=== PATIENT | female | born 1990 | race Caucasian/White ===

== ENCOUNTER → 2017-12-23 12:00 | Outpatient (CLI) | payer OTHER, SELFPAY ==
[2017-12-23 13:35] LABS: Follicle Stimulating Hormone 5.7 mIU/mL; T4 Free Direct 1.08 ng/dL (0.76-1.46)
[2017-12-25 14:06] LABS: DHEA Sulfate 492.6 ug/dL (84.8-378.0)
[2017-12-26 11:08] LABS: Testosterone Free 1.1 pg/mL (0.0-4.2)
== END ==
PROVIDERS: Visit Provider Obstetrics & Gynecology
DX: N92.6 Irregular menstruation, unspecified (principal)
CPT/HCPCS: 36415; 82627; 83001; 84402; 84439; 82626

== ENCOUNTER → 2017-12-29 11:56 | Outpatient (CLI) | payer OTHER, SELFPAY | PROVIDERS: Visit Provider Obstetrics & Gynecology | DX: N92.6 Irregular menstruation, unspecified (principal); N83.02 Follicular cyst of left ovary; N83.01 Follicular cyst of right ovary | CPT/HCPCS: 76830; 76856; 93976 ==

== ENCOUNTER → 2018-01-20 15:49 | Outpatient (CLI) | payer OTHER, SELFPAY ==
[2018-01-20 17:48] LABS: Progesterone Level 11.58 ng/mL (See Comment)
[2018-01-20 18:10] LABS: hCG Titer Quant., Serum 1040 mIU/mL (<9 non-preg)
== END ==
PROVIDERS: Visit Provider Obstetrics & Gynecology
DX: N97.9 Female infertility, unspecified (principal); N92.6 Irregular menstruation, unspecified
CPT/HCPCS: 36415; 84144; 84702

== ENCOUNTER → 2018-01-22 10:55 | Outpatient (CLI) | payer OTHER, SELFPAY ==
[2018-01-22 12:37] LABS: hCG Titer Quant., Serum 2347 mIU/mL (<9 non-preg)
== END ==
PROVIDERS: Visit Provider Obstetrics & Gynecology
DX: N92.6 Irregular menstruation, unspecified (principal)
CPT/HCPCS: 36415; 84702

== ENCOUNTER → 2018-02-21 20:11 | Outpatient (CLI) | payer OTHER, SELFPAY ==
[2018-02-21 23:18] LABS: Chlamydia Trachomatis by PCR Negative (Negative); Neisserai gonorrhoeae by PCR Negative (Negative); Probe Check PASS; Sample Adequacy Control PASS; Specimen Processing Control PASS
[2018-02-24 12:05] LABS: HPV Reflexed? NOT INDICATED
== END ==
PROVIDERS: Referring Provider Obstetrics & Gynecology; Visit Provider Obstetrics & Gynecology
DX: Z34.80 Encounter for supervision of other normal pregnancy, unspecified trimester (principal); Z12.4 Encounter for screening for malignant neoplasm of cervix
CPT/HCPCS: 87086; 87491; 87591; 87624; 88175; G0145

== ENCOUNTER → 2018-03-23 12:34 | Outpatient (CLI) | payer OTHER, SELFPAY ==
[2018-03-23 11:52] VITALS: BMI 34.5
[2018-03-23 14:03] LABS: Absolute Lymphocyte Count 1.72 X10^3/ul (0.83-4.51); Absolute Neutrophil Count 9.1 X10^3/uL (2.0-7.7); Basophil# 0.02 X10^3/uL; Basophil% 0.2 % (0-1); Eosinophil# 0.09 X10^3/uL; Eosinophils% 0.8 % (0-5); Hematocrit 39.4 % (37-47); Hemoglobin 13.2 g/dl (12.0-15.0); Lymphocyte # 1.72 X10^3/ul (4.0); Lymphocyte % 15.1 % (19-41); Mean Corp Hgb Conc 33.5 g/gl (32-36); Mean Corpuscular Hgb 30.9 pg (27.0-32.0); Mean Corpuscular Volume 92.3 fL (81-99); Mean Platelet Vol. 11.4 fl (6.2-12.0); Monocyte# 0.38 X10^3/uL; Monocyte% 3.3 % (0-10); Neutrophil # 9.13 X10^3/uL (2.7-7.7); Neutrophil % 80.3 % (47-70); Platelet Count 310 K/mm3 (150-450); RBC Distribution Width CV 13.7 % (11.6-14.6); RBC Distribution Width SD 45.3 fl (35.1-43.9); Red Blood Count 4.27 M/mm3 (4.2-5.4); White Blood Count 11.4 K/mm3 (4.4-11.0)
[2018-03-23 14:12] LABS: POSITIVE COUNT NO; POSITIVE DIFFERENTIAL NO; POSITIVE MORPHOLOGY NO
[2018-03-23 14:45] LABS: HIV - WCH Non-Reactive (Nonreactive); Rubella IgG 34.2 IU/mL
[2018-03-24 08:30] LABS: HEPATITIS B SURFACE AG Negative (Negative)
[2018-03-25 02:03] LABS: Rapid Plasmin Reagin (RPR) NONREACTIVE (NONREACTIVE)
== END ==
PROVIDERS: Referring Provider Obstetrics & Gynecology; Visit Provider Obstetrics & Gynecology
DX: Z34.82 Encounter for supervision of other normal pregnancy, second trimester (principal)
CPT/HCPCS: 36415; 85025; 86592; 86703; 86762; 86850; 86900; 87340

== ENCOUNTER 2018-07-07 14:15 | Outpatient (CLI) | payer OTHER, SELFPAY ==
[2018-07-07 14:05] VITALS: BMI 36.3
[2018-07-07 14:25] VITALS: BMI 36.7
[2018-07-07 15:00] LABS: Protein, Urine (Random) < 6.0 mg/dL (<11.9)
[2018-07-07 15:15] LABS: Hematocrit 33.8 % (37-47); Mean Corp Hgb Conc 32.5 g/gl (32-36); Mean Corpuscular Hgb 31.1 pg (27.0-32.0); Mean Corpuscular Volume 95.5 fL (81-99); Mean Platelet Vol. 10.9 fl (6.2-12.0); Platelet Count 251 K/mm3 (150-450); RBC Distribution Width CV 13.8 % (11.6-14.6); RBC Distribution Width SD 45.7 fl (35.1-43.9); Red Blood Count 3.54 M/mm3 (4.2-5.4); Scan Indicated on CBC? Y/N NO; White Blood Count 12.7 K/mm3 (4.4-11.0)
[2018-07-07 15:28] LABS: International Normalized Ratio 1.1; Prothrombin Time (Protime)PT. 13.5 SECONDS (11.7-14.9)
[2018-07-07 15:29] LABS: Partial Thromboplast Time 26.4 Seconds (24.1-36.2)
[2018-07-07 15:32] LABS: Glucose Challenge Gest 1H 50g 148 mg/dL (70-140)
[2018-07-07 15:36] LABS: AST(SGOT) 13 U/L (15-37); Alanine Aminotransfer ALT/SGPT 15 U/L (13-56); Creatinine, Serum 0.57 mg/dL (0.55-1.02); EST Glomerular Filtration Rate 133 mL/min (>60); Est Glom Filt Rate - Afr Amer 161 mL/min (>60); Estimated Creatinine Clearance 148.23 ml/min; Uric Acid 2.4 mg/dL (2.6-6.0)
--- NOTE | 2018-07-08 03:17 | OB.TRI.NOTE ---
- Problem List (1) screening encounter Status: Acute Comment: NIPT low risk. (2) Status: Acute Qualifiers: Comment: nl NIPT. carrier and ntd screening declined. Normal Anatomy scan (3) History of delivery, currently Status: Acute Comment: previous plan RLTCS (4) Supervision of normal Status: Acute Qualifiers: Comment: PRR SHANE 09/24/18 Boy. PC Shekhar Олег (5) Elevated BP without diagnosis of hypertension Status: Acute History of Present Illness Date of Service: 07/07/18 Was patient seen by the physician?: Yes Reason For Visit: R/O PREECLAMPSIA History of Present Illness: elevated bps in office Allergies aspirin Allergy (Verified 07/07/18 13:47) Swelling latex Allergy (Verified 07/07/18 13:47) Rash - Pertinent Past Medical History Surgical History: Past Surgical History (Last Reviewed 07/07/18 @ 13:48 by Gabriela Zheng) delivery delivered H/O hand surgery History of appendectomy [place] teeth extracted Laboratory Studies: Laboratory Tests 07/07/18 07/07/18 07/07/18 Range/Units 14:50 14:50 14:50 WBC (4.4-11.0) K/mm3 RBC (4.2-5.4) M/mm3 Hgb (12.0-15.0) g/dl Hct (37-47) % MCV (81-99) fL MCH (27.0-32.0) pg MCHC (32-36) g/gl RDW (11.6-14.6) % RDW Differential (35.1-43.9) fl Plt Count (150-450) K/mm3 MPV (6.2-12.0) fl PT 13.5 (11.7-14.9) SECONDS INR 1.1 APTT 26.4 (24.1-36.2) Seconds Creatinine 0.57 (0.55-1.02) mg/dL Estim Creat Clear Calc 148.23 ml/min Est GFR (MDRD) Af Amer 161 (>60) mL/min Est GFR (MDRD) Non-Af 133 (>60) mL/min Glucose 1 Hr 50 gm 148 H (70-140) mg/dL Uric Acid 2.4 L (2.6-6.0) mg/dL AST 13 L (15-37) U/L ALT 15 (13-56) U/L U Random Total Protein (<11.9) mg/dL Urine Creatinine (NO RANGE EST.) mg/dL Protein/Creatinin Ratio 07/07/18 07/07/18 Range/Units 14:50 14:30 WBC 12.7 H (4.4-11.0) K/mm3 RBC 3.54 L (4.2-5.4) M/mm3 Hgb 11.0 L (12.0-15.0) g/dl Hct 33.8 L (37-47) % MCV 95.5 (81-99) fL MCH 31.1 (27.0-32.0) pg MCHC 32.5 (32-36) g/gl RDW 13.8 (11.6-14.6) % RDW Differential 45.7 H (35.1-43.9) fl Plt Count 251 (150-450) K/mm3 MPV 10.9 (6.2-12.0) fl PT (11.7-14.9) SECONDS INR APTT (24.1-36.2) Seconds Creatinine (0.55-1.02) mg/dL Estim Creat Clear Calc ml/min Est GFR (MDRD) Af Amer (>60) mL/min Est GFR (MDRD) Non-Af (>60) mL/min Glucose 1 Hr 50 gm (70-140) mg/dL Uric Acid (2.6-6.0) mg/dL AST (15-37) U/L ALT (13-56) U/L U Random Total Protein < 6.0 (<11.9) mg/dL Urine Creatinine 21.90 (NO RANGE EST.) mg/dL Protein/Creatinin Ratio TNP NST - FHR Rate Baby A Baseline: 130 Variability:: Moderate Accelerations:: 15 x 15 Decelerations:: None NST Reactive:: Yes FHR Category:: Category I Uterine Activity:: no regular Impression/Plan elevated bp in office but repeats WNL, normal labs and asymptomatic. recommend dc preeclampsia precautions and fu in office in 1 week
== END 2018-07-07 16:05 | disposition home or self-care (01) ==
LOC: WPOUT 14:23 → WP 14:24
PROVIDERS: Referring Provider Obstetrics & Gynecology; Visit Provider Obstetrics & Gynecology
DX: O99.89 Other specified diseases and conditions complicating pregnancy, childbirth and the puerperium (principal); R03.0 Elevated blood-pressure reading, without diagnosis of hypertension; Z3A.00 Weeks of gestation of pregnancy not specified
CPT/HCPCS: 36415; 59025; 59050; 82565; 82570; 82950; 84156; 84450; 84460; 84550; 85027; 85610; 85730; 99218; G0378

== ENCOUNTER → 2018-07-12 07:41 | Outpatient (CLI) | payer OTHER, SELFPAY ==
[2018-07-07 14:25] VITALS: BMI 36.7
[2018-07-12 09:08] LABS: Glucose GTT-Gestation. Fasting 85 mg/dL (<105)
[2018-07-12 09:52] LABS: Glucose GTT-Gestational 1 Hr 174 mg/dL (<190)
[2018-07-12 12:17] LABS: Glucose GTT-Gestational 2 Hr 147 mg/dL (<165)
[2018-07-12 12:25] LABS: Glucose GTT-Gestational 3 Hr 87 L (<145)
== END ==
PROVIDERS: Referring Provider Obstetrics & Gynecology; Visit Provider Obstetrics & Gynecology
DX: O99.810 Abnormal glucose complicating pregnancy (principal); Z3A.00 Weeks of gestation of pregnancy not specified
CPT/HCPCS: 36415; 82951; 82952

== ENCOUNTER 2018-08-15 10:40 | Outpatient (CLI) | payer OTHER, SELFPAY ==
[2018-08-02 16:38] VITALS: BMI 36.7
[2018-08-15 11:02] VITALS: BMI 37.3
[2018-08-15] MEDS: Lactated Ringers 1,000 ML 999 ML IV (13:33)
[2018-08-15 13:41] LABS: Absolute Lymphocyte Count 1.76 X10^3/ul (0.83-4.51); Absolute Neutrophil Count 11.6 X10^3/uL (2.0-7.7); Basophil# 0.02 X10^3/uL; Basophil% 0.1 % (0-1); Eosinophil# 0.06 X10^3/uL; Eosinophils% 0.4 % (0-5); Hematocrit 36.1 % (37-47); Hemoglobin 11.7 g/dl (12.0-15.0); Lymphocyte # 1.76 X10^3/ul (4.0); Lymphocyte % 12.5 % (19-41); Mean Corp Hgb Conc 32.4 g/gl (32-36); Mean Corpuscular Hgb 30.6 pg (27.0-32.0); Mean Corpuscular Volume 94.5 fL (81-99); Mean Platelet Vol. 10.9 fl (6.2-12.0); Monocyte# 0.52 X10^3/uL; Monocyte% 3.7 % (0-10); Neutrophil # 11.59 X10^3/uL (2.7-7.7); Neutrophil % 82.7 % (47-70); POSITIVE COUNT NO; POSITIVE DIFFERENTIAL NO; POSITIVE MORPHOLOGY NO; Platelet Count 210 K/mm3 (150-450); RBC Distribution Width CV 14.7 % (11.6-14.6); RBC Distribution Width SD 50.1 fl (35.1-43.9); Red Blood Count 3.82 M/mm3 (4.2-5.4)
[2018-08-15 14:32] LABS: Bacteria 0 SEEN /hpf (None Seen); Mucous, Urine 0 SEEN /hpf (<or=2+); Red Blood Cells-Urine 0 SEEN /hpf (0-5); White Blood Cells 0 SEEN /hpf (0-5)
[2018-08-15 14:34] LABS: Color, Urine Yellow (Yellow); Glucose, Dipstick Normal (Normal); Ketone-Dipstick Negative (Negative); Leukocyte Esterase-Dipstick Negative /ul (Negative); Nitrite-Dipstick Negative (Negative); Occult Blood-Urine Negative /ul (Negative); Protein-Dipstick Negative (Negative); Specific Gravity, Urine 1.005 (1.002-1.030); Urine Bilirubin Dipstick Negative (Negative); Urine Clarity Clear (Clear); Urine Urobilinogen Normal (Normal)
[2018-08-15 14:44] LABS: Squamous Epithelial Cells - UA 0-5 SEEN /hpf (5-10)
--- NOTE | 2018-08-24 03:40 | OB.TRI.PN_ITS ---
Progress Notes Date of Service: 08/15/18 Progress Note: NST secondary to abdominal trauma from status post fall heart tones 130s moderate variability reactive no decelerations category 1 tracing reactive and reassuring [place]: Irregular contractions Assessment and plan: Abdominal trauma secondary to fall reassuring reactive NST no decelerations DC home labor precautions and kick counts Laboratory Studies: Laboratory Tests 08/15/18 08/15/18 Range/Units 14:20 13:30 WBC 14.0 H (4.4-11.0) K/mm3 RBC 3.82 L (4.2-5.4) M/mm3 Hgb 11.7 L (12.0-15.0) g/dl Hct 36.1 L (37-47) % MCV 94.5 (81-99) fL MCH 30.6 (27.0-32.0) pg MCHC 32.4 (32-36) g/gl RDW 14.7 H (11.6-14.6) % RDW Differential 50.1 H (35.1-43.9) fl Plt Count 210 (150-450) K/mm3 MPV 10.9 (6.2-12.0) fl Immature Gran % (Auto) 0.600 (0.0-0.9) % Neut % (Auto) 82.7 H (47-70) % Lymph % (Auto) 12.5 L (19-41) % Fisher % (Auto) 3.7 (0-10) % Eos % (Auto) 0.4 (0-5) % Baso % (Auto) 0.1 (0-1) % Absolute Neuts (auto) 11.6 H (2.0-7.7) X10^3/uL Absolute Lymphs (auto) 1.76 (0.83-4.51) X10^3/ul Total Counted Not Reportable Urine Color Yellow (Yellow) Urine Clarity Clear (Clear) Urine pH 7.0 (5.0 - 8.0) Ur Specific [place] 1.005 (1.002-1.030) Urine Protein Negative (Negative) mg/dl Urine Glucose (UA) Normal (Normal) mg/dl Urine Ketones Negative (Negative) mg/dl Urine Occult Blood Negative (Negative) /ul Urine Nitrite Negative (Negative) Urine Bilirubin Negative (Negative) mg/dL Urine Urobilinogen Normal (Normal) mg/dl Ur Leukocyte Esterase Negative (Negative) /ul Urine RBC 0 SEEN (0-5) /hpf Urine WBC 0 SEEN (0-5) /hpf Ur Squamous Epith Cells 0-5 SEEN (5-10) /hpf Urine Bacteria 0 SEEN (None Seen) /hpf Urine Mucus 0 SEEN (<or=2+) /hpf
== END 2018-08-15 14:43 | disposition home or self-care (01) ==
LOC: WPOUT 10:44 → OBT 10:45
PROVIDERS: Referring Provider Obstetrics & Gynecology; Visit Provider Obstetrics & Gynecology
DX: O9A.219 Injury, poisoning and certain other consequences of external causes complicating pregnancy, unspecified trimester (principal); S39.91XA Unspecified injury of abdomen, initial encounter; W19.XXXA Unspecified fall, initial encounter; Y93.9 Activity, unspecified; Y92.9 Unspecified place or not applicable; Z3A.00 Weeks of gestation of pregnancy not specified
CPT/HCPCS: 59025; 59050; 81001; 85025; 87086; 87088; 99218; J7120; G0378

== ENCOUNTER → 2018-08-29 16:35 | Outpatient (CLI) | payer OTHER, SELFPAY ==
[2018-08-29 15:18] VITALS: BMI 37.3
== END ==
PROVIDERS: Referring Provider Nurse Practitioner Women's Health; Visit Provider Nurse Practitioner Women's Health
DX: Z34.90 Encounter for supervision of normal pregnancy, unspecified, unspecified trimester (principal)
CPT/HCPCS: 87081

== ENCOUNTER 2018-09-20 05:25 | Inpatient (IN) | payer OTHER, SELFPAY ==
[2018-07-19 16:09] VITALS: BMI 36.7
[2018-08-15 13:00] VITALS: BMI 37.3
[2018-09-13 16:02] VITALS: BMI 37.3
[2018-09-20] VITALS (20 sets, daily range): BP systolic 83–147; BP diastolic 37–98; PULSE 64–93; RESP 16–18; TEMP 35.7–36.8; O2SAT 94–100; BMI 38.5
[2018-09-20] MEDS: Lactated Ringers 1,000 ML 999 ML IV (05:55)
[2018-09-20 06:25] LABS: Absolute Neutrophil Count 8.4 X10^3/uL (2.0-7.7); Basophil# 0.01 X10^3/uL; Basophil% 0.1 % (0-1); Eosinophil# 0.11 X10^3/uL; Hematocrit 35.6 % (37-47); Hemoglobin 11.9 g/dl (12.0-15.0); Lymphocyte % 17.6 % (19-41); Mean Corp Hgb Conc 33.4 g/gl (32-36); Mean Corpuscular Hgb 31.2 pg (27.0-32.0); Mean Corpuscular Volume 93.4 fL (81-99); Mean Platelet Vol. 11.4 fl (6.2-12.0); Monocyte# 0.73 X10^3/uL; Monocyte% 6.4 % (0-10); Neutrophil # 8.42 X10^3/uL (2.7-7.7); Neutrophil % 74.1 % (47-70); Platelet Count 187 K/mm3 (150-450); RBC Distribution Width CV 14.7 % (11.6-14.6); RBC Distribution Width SD 47.8 fl (35.1-43.9); Red Blood Count 3.81 M/mm3 (4.2-5.4); White Blood Count 11.4 K/mm3 (4.4-11.0)
[2018-09-20 06:26] LABS: POSITIVE COUNT NO; POSITIVE DIFFERENTIAL NO; POSITIVE MORPHOLOGY NO
[2018-09-20] MEDS: Sodium Citrate/Citric Acid 30 ML UDC PO (07:11)
[2018-09-20] MEDS: Lactated Ringers 1,000 ML 150 ML IV (07:12)
[2018-09-20] MEDS: Cefazolin 2 GM in 0.9% Normal Saline 100 ML IV (07:18)
[2018-09-20] MEDS: Nalbuphine 10 MG/ML Ampul 5 MG IV (11:45)
[2018-09-20] MEDS: 0.9% Saline Lock 10 ML Syringe IV ×2 (11:45→18:45)
[2018-09-20] MEDS: Ketorolac 30 MG/ML Syringe IV ×3 (12:47→23:54)
[2018-09-20] MEDS: Lactated Ringers 1,000 ML 100 ML IV ×2 (13:39→23:54)
--- NOTE | 2018-09-20 17:30 | PCM.OPRPT ---
Problem List (1) screening encounter Status: Acute Comment: NIPT low risk. (2) History of delivery, currently Status: Acute Comment: previous plan RLTCS- 09/20/18 (3) Status: Acute Qualifiers: Weeks of gestation: 38 weeks Qualified Code(s): Z3A.38 - 38 weeks gestation of Comment: nl NIPT. carrier and ntd screening declined. Normal Anatomy scan, 3 hr. glucose test normal (4) Supervision of normal Status: Acute Qualifiers: Normal : other normal Trimester: third trimester Qualified Code(s): Z34.83 - Encounter for supervision of other normal , third trimester Comment: PRR SHANE 09/24/18 Boy. PC Shekhar Олег Delivery Classification: Scheduled Final SHANE: 09/27/18 Gestational age: 39 Weeks and Days Indications for : Repeat Elective Description of Procedure: The patient is a 28-year-old G2, P1 at 39 weeks presented for repeat . Spinal anesthesia was placed without difficulty. Russell catheter was placed. The patient was placed in the dorsal supine position with leftward tilt. Patient was prepped and draped in the normal sterile fashion. Pfannenstiel skin incision was made with the scalpel and carried through to the underlying layer of fascia with the scalpel. Fascia was nicked in the midline and the incision extended laterally. The rectus bellies were dissected off superiorly and inferiorly with out complication both sharply and bluntly. The peritoneum was entered digitally. The incision was stretched and a low transverse uterine incision was made with the scalpel. The 's head was delivered atraumatically followed by the anterior and posterior shoulders without complication the rest of the infant delivered. The cord was clamped and cut and the was handed off to awaiting nurse. The placenta was delivered spontaneously immediately following and was noted to be intact and have a three-vessel cord. The uterus was exteriorized cleared of all clots and debris, and the incision was closed in a double layer closure using #1 Monocryl. The uterus was returned to the maternal abdomen and gutters were cleared of all clots and debris. The ovaries and fallopian tubes were noted to be within normal limits. The peritoneum was closed with 3-0 Monocryl in a running fashion. Fascia was closed with 0 PDS in a running fashion. Subcutaneous tissue was copiously irrigated and the skin was closed with 3-0 Monocryl in a subcuticular fashion. Mepilex dressing were applied without complication. Patient was taken to recovery in stable condition. Amniotic Membrane Rupture Type: Artificial Amniotic Fluid Description: Clear Placenta Disposition: [facility] Specimen(s) sent to pathology: none Fluids Replaced: crystalloid Cord Entanglement: None Cord Vessel Description: 3 Vessels Esitmated Blood Loss (ml): 900 Infant Gender: Male Delayed cord clamping: Yes Pre-op Antibiotic Given: Ancef 2 grams IV x1 Complications: None - Admit VTE Documentation VTE Present on Admission: Yes
--- NOTE | 2018-09-20 17:30 | PCM.HPOB.BLA ---
- Problem List (1) screening encounter Status: Acute Comment: NIPT low risk. (2) History of delivery, currently Status: Acute Comment: previous plan RLTCS- 09/20/18 (3) Status: Acute Qualifiers: Weeks of gestation: 38 weeks Qualified Code(s): Z3A.38 - 38 weeks gestation of Comment: nl NIPT. carrier and ntd screening declined. Normal Anatomy scan, 3 hr. glucose test normal (4) Supervision of normal Status: Acute Qualifiers: Normal : other normal Trimester: third trimester Qualified Code(s): Z34.83 - Encounter for supervision of other normal , third trimester Comment: PRR SHANE 09/24/18 Boy. IVETTE Corrigan Олег History and Physical Date of Admission: 09/20/18 Intake Vital Signs 09/13/18 Body Mass Index (BMI) 37.3 09/13/18 Height 5 ft 8 in 09/13/18 Weight: 251 lb 09/13/18 Body Mass Index (BMI) 38.1 09/13/18 Blood Pressure 110/80 Intake Visit Reasons: 38 WEEK OB Chief Complaint: est ob Refund Specialist Required: No Is patient in pain?: No Allergies aspirin Allergy (Verified 09/13/18 16:01) Swelling latex Allergy (Verified 09/13/18 16:01) Rash Medications vitamin,calcium,tnpytalb-plcl-odhto acid tablet 1 tab PO DAILY 03/23/18 [History Confirmed 09/13/18] Last Menstral Period: 12/18/17 Zika: Zika virus screening: Negative : No PFSH PFSH Surgical History delivery delivered (Acute) H/O hand surgery (Acute) History of appendectomy (Acute) [place] teeth extracted (Acute) Family History Father Hypertrophic cardiomyopathy Social History number of children: 1 current occupational status: employed current occupation: [employer] Smoking Status: Never smoker alcohol intake: never substance use type: does not use caffeine: No seatbelt use: always do you feel safe at home: Yes additional social history: 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 [employer] Pregancy History 2 Elective abortions Hx Para 1 Spontaneous abortions Hx # Term Pregnancies 1 Ectopic pregnancies Hx # Pregnancies Multiple births # of living children 1 Past Pregnancies Del. Date Name GA/Weeks Outcome Route Bth Weight Gen Labor Lgth Anesthesia Del Locatn Provider FOB 10/17/15 Shekhar 41 live - full term 7 lbs. 10 oz Male 36 hours epidural [facility] Dr. Carpenter HPI 38 WEEK OB: Details: FREDO MATUTE is a 28 year old who presents for routine OB visit. She is going to have a repeat at 39 weeks she declines a trial of labor after OB Visit SHANE Calculator Estimated Delivery Date 09/24/18 Based on LMP (certain) 12/18/17 Current WG 38w 3d Number 1 Expected Delivery Route/Plan RLTCS Specific Issue/Plans flu vaccine: declines tdap vaccine: given rhogam: na LARC form signed: declines labor support person: Олег pain management: rcs cut cord/dad catch: [] : no PP control planned: special requests: [] Initial Weight: 225 lb Date EGA Weight BP Urine Prot Glucose FHR FuHt Pres Mov CTX Dilation Effaced St Visit Note 03/23/18 13w 4d 227 lb 4 oz (+2 lb 4 oz) 104/64 Negative Negative 157 Some headaches. Better today. Some nausea. No VB, LOF 04/22/18 17w 6d 229 lb (+4 lb) 124/80 150 no vb cramping, us is scheduled. 05/16/18 21w 2d 233 lb (+8 lb) 130/80 Negative Negative 150 no vb lof good fm no regular ctx draw afp today 06/14/18 25w 3d 239 lb (+14 lb) 146/82 150 no vb lof good fm repeta bp WNL 07/07/18 28w 5d 244 lb (+19 lb) 140/92 Negative Negative 137 Active absent Elevated BP X 2 today. No CTX, VB, LOF. 07/19/18 30w 3d 242 lb (+17 lb) 130/70 Negative Negative 135 32 Active absent no vb lof good fm no regular ctx schedule cs 08/02/18 32w 3d 241 lb 6 oz (+16 lb 6 oz) 120/70 Negative Negative 130 33 Active absent no vb lof good fm no regular ctx went to [place], no symptoms 08/16/18 34w 3d 245 lb (+20 lb) 122/70 Negative Negative 140 35 Active absent no vb lof good fm no regular ctx 08/29/18 36w 2d 251 lb (+26 lb) 120/78 Negative Negative 138 37 Cephalic Active absent 1.50 -3 Doing well. No VB, LOF 09/05/18 37w 2d 249 lb (+24 lb) 112/80 Negative Negative 135 38 absent n ovb lof good fm no regular ctx 09/13/18 38w 3d 251 lb (+26 lb) 110/80 Negative Negative 130 40 absent no vb lof good fm no regular ctx. Visit Notes Visit Date: 09/13/18 ??no vb lof good fm no regular ctx. ??Kaylynn Gong MD on 09/13/18 Visit Date: 09/05/18 ??n ovb lof good fm no regular ctx ??Kaylynn Gong MD on 09/05/18 Visit Date: 08/29/18 ??Doing well. No VB, LOF ??Kia Alcala NP-C on 08/29/18 Visit Date: 08/16/18 ??no vb lof good fm no regular ctx ??Kaylynn Gong MD on 08/16/18 Visit Date: 08/02/18 ??no vb lof good fm no regular ctx went to [place], no symptoms ??Kaylynn Gong MD on 08/02/18 Visit Date: 07/19/18 ??no vb lof good fm no regular ctx schedule cs ??Kaylynn Gong MD on 07/19/18 Visit Date: 07/07/18 ??Elevated BP X 2 today. No CTX, VB, LOF. ??ERNESTINA ChaidezC on 07/07/18 Visit Date: 06/14/18 ??no vb lof good fm repeta bp WNL ??Kaylynn Gong MD on 06/22/18 Visit Date: 05/16/18 ??no vb lof good fm no regular ctx draw afp today ??Kaylynn Gong MD on 05/16/18 Visit Date: 04/22/18 ??no vb cramping, us is scheduled. ??Kaylynn Gong MD on 04/22/18 Visit Date: 03/23/18 ??Some headaches. Better today. Some nausea. No VB, LOF ??LARRY Chaidez on 03/23/18 ACOG First Trimester First Trimester: Desire for , Alcohol, Tobacco Cessation, Illicit/Recreational Drug/Substance Use, Intimate Partner Violence, Barriers to care, Unstable Housing, Communication Barriers, Environmental/Work Hazards, Anticipated Course of Care, Toxoplasmosis Precations, Use of Any medications, Sexual activity, Exercise, Dental Care, Sauna/Hot tub use, Seat Belt use, Childbirth classes/Hospital facilities, , Travel, Indications for US and Screening for Aneuploidy Diagnostics Diagnostics Labs Hct 36.1 % (37-47) L 08/15/18 Hgb 11.7 g/dl (12.0-15.0) L 08/15/18 Glucose 1 Hr 50 gm 148 mg/dL (70-140) H 07/07/18 Details: HIV: Urine Culture: Sequential Screen: NIPT Screen: ROS: general: negative heent: negative cardio negative pulm negative gi negative Musculoskeletal negative Physical exam: [place] vital signs stable afebrile General: Alert oriented comfortable HEENT: No thyromegaly or adenopathy Abdomen: Soft gravid nontender palpation appropriate for gestational age Extremities: No edema heart tones 140s Results [id number] Office Urine Glucose Negative Last Edit by Karen Lara on 09/13/18 16:05 Office Urine Protein Negative Last Edit by Karen Lara on 09/13/18 16:05 Assessment & Plan Problems 1. screening encounter Z36.9 2. History of delivery, currently O34.219 3. Encounter for supervision of other normal in third trimester Z34.83 4. 38 weeks gestation of Z3A.38 Plan movement and labor precautions reviewed. ACOG trimester education reviewed and updated. see problem list details for updated plan management information and see below for orders placed at this visit. GA appropriate handout given. Orders Orders: POC Urinalysis 2 Dip (Clinic) Today Coding Level of Care Code OB Routine Diagnoses screening encounter Z36.9 History of delivery, currently O34.219 Encounter for supervision of other normal in third trimester Z34.83 ??Normal : other normal ??Trimester: third trimester 38 weeks gestation of Z3A.38 ??Weeks of gestation: 38 weeks
[2018-09-20] MEDS: Enoxaparin 40 MG/0.4 ML Syringe SC (18:48)
[2018-09-21] VITALS (8 sets, daily range): BP systolic 101–130; BP diastolic 32–70; PULSE 68–100; RESP 16–18; TEMP 36.4–37.1; O2SAT 96–99
[2018-09-21] MEDS: Ketorolac 30 MG/ML Syringe IV ×3 (05:26→19:22)
[2018-09-21 05:52] LABS: Hemoglobin 9.8 g/dl (12.0-15.0); Mean Corp Hgb Conc 32.7 g/gl (32-36); Mean Corpuscular Hgb 30.9 pg (27.0-32.0); Mean Corpuscular Volume 94.6 fL (81-99); Mean Platelet Vol. 11.6 fl (6.2-12.0); Platelet Count 158 K/mm3 (150-450); RBC Distribution Width CV 14.6 % (11.6-14.6); RBC Distribution Width SD 48.1 fl (35.1-43.9); Red Blood Count 3.17 M/mm3 (4.2-5.4); White Blood Count 11.3 K/mm3 (4.4-11.0)
[2018-09-21 05:53] LABS: Scan Indicated on CBC? Y/N NO
--- NOTE | 2018-09-21 08:30 | PCM.PN.OB ---
Subjective: doing well no complaints, some issues with pain control, no CP SOB N V ambulating well tolerating po lochia moderate, going well - Physical Exam General: Alert, Oriented x3 Abdomen: Soft, Non-Distended, - - FF below U. Dressing dry and intact Vital Signs Temp Pulse Resp BP Pulse Ox 97.6 F L 85 16 101/53 L 99 09/21/18 04:06 09/21/18 05:27 09/21/18 05:27 09/21/18 04:06 09/21/18 05:27 Oxygen Delivery Method Room Air Weight: 253 lb 6.4 oz Body Mass Index (BMI) 38.5 Intake and Output for Last 24 Hours 09/19/18 09/20/18 09/21/18 23:59 23:59 23:59 Intake Total 6160 / 6160 1078 / 1078 Output Total 1750 / 1750 1600 / 1600 Balance 4410 / 4410 -522 / -522 Laboratory Tests Past 24 Hrs 09/21/18 05:35 WBC 11.3 H RBC 3.17 L Hgb 9.8 L Hct 30.0 L MCV 94.6 MCH 30.9 MCHC 32.7 RDW 14.6 RDW Differential 48.1 H Plt Count 158 MPV 11.6 Medical Necessity - Tobacco Use Smoking Status: Never smoker Assessment/Plan All Active Problems (Last Reviewed 09/13/18 @ 16:02 by Karen Lara) screening encounter (Acute) (Acute) History of delivery, currently (Acute) Supervision of normal (Acute) Elevated BP without diagnosis of hypertension (Resolved) Irregular menstrual cycle (Resolved) Secondary female infertility (Resolved) normal preclampsia labs (Resolved) s/p LTCS PPD # 1 1. routine post care 2. breast feeding- support given 3. rh positive 4. rubella immune
[2018-09-21] MEDS: 0.9% Saline Lock 10 ML Syringe IV ×3 (09:07→19:22)
[2018-09-21] MEDS: Enoxaparin 40 MG/0.4 ML Syringe SC (09:08)
[2018-09-21] MEDS: oxyCODONE 5 MG Tablet PO (09:08)
[2018-09-21] MEDS: Senna/Docusate Sodium 1 Tablet PO (09:08)
[2018-09-21] MEDS: Acetaminophen 500 MG Tablet 1000 MG PO (21:29)
[2018-09-22] MEDS: Ketorolac 30 MG/ML Syringe IV ×2 (00:54→08:17)
[2018-09-22] MEDS: 0.9% Saline Lock 10 ML Syringe IV ×2 (00:54→08:17)
[2018-09-22 02:00] VITALS: BP 107/53; PULSE 82; RESP 16; TEMP 36.4; O2SAT 97
[2018-09-22] MEDS: Acetaminophen 500 MG Tablet 1000 MG PO (05:37)
--- NOTE | 2018-09-22 07:46 | PCM.PN.OB ---
Subjective: doing well no complaints pain controlled no CP SOB N V ambulating well tolerating po lochia moderate, going well - Physical Exam General: Alert, Oriented x3 Abdomen: Soft, Non-Distended, - - FF below U. Dressing dry and intact Vital Signs Temp Pulse Resp BP Pulse Ox 97.5 F L 82 16 107/53 L 97 09/22/18 02:00 09/22/18 02:00 09/22/18 02:00 09/22/18 02:00 09/22/18 02:00 Oxygen Delivery Method Room Air Weight: 253 lb 6.4 oz Body Mass Index (BMI) 38.5 Intake and Output for Last 24 Hours 09/20/18 09/21/18 09/22/18 23:59 23:59 23:59 Intake Total 6160 / 6160 1078 / 1078 Output Total 1750 / 1750 4750 / 4750 Balance 4410 / 4410 -3672 / -3672 Medical Necessity - Tobacco Use Smoking Status: Never smoker Assessment/Plan All Active Problems (Last Reviewed 09/13/18 @ 16:02 by Karen Lara) screening encounter (Acute) (Acute) History of delivery, currently (Acute) Supervision of normal (Acute) Elevated BP without diagnosis of hypertension (Resolved) Irregular menstrual cycle (Resolved) Secondary female infertility (Resolved) normal preclampsia labs (Resolved) s/p LTCS PPD # 2 1. routine post care 2. breast feeding- support given 3. rh positive 4. rubella immune 5. Home today
--- NOTE | 2018-09-22 07:48 | DCINST_ITS ---
Additional Instructions: If you experience any of the following, contact your healthcare provider. * Bleeding that soaks a pad every hour for 2 hours * Fever 100.4 or higher * Unrelieved incision or abdominal pain * Swelling, redness, discharge or bleeding from your incision or episiotomy site * Your incision begins to separate * Problems urinating (including inability to urinate or burning while urinating). * Visual changes * Severe headache * Flu-like symptoms * Pain or redness in one of both of your breasts * Pain, warmth, tenderness or swelling in your legs, especially the calf area * Frequent nausea and vomiting * Symptoms of depression or anxiety If you experience any of the following, call 911 or go to the nearest Emergency Room. * Chest pain * Problems breathing * Seizure activity * Partial or complete paralysis of a body part, slurred speech, weakness or drooping of the face, or a sudden inability to walk or hold your balance Allergies/Adverse Reactions: Allergies aspirin Allergy (Verified 09/20/18 06:48) Anaphylaxis latex Allergy (Verified 09/13/18 16:01) Rash Medications to take at Discharge vitamin,calcium,ubdjdcej-quhm-bsdad acid tablet 1 tab PO DAILY 03/23/18 Naproxen [Naprosyn] 500 mg PO BID PRN PRN #60 tablet 09/22/18 Oxycodone HCl/Acetaminophen [Percocet 5/325] 1 - 2 tablet PO Q4H PRN PRN 3 Days #15 tablet 09/22/18 The following prescriptions were given: Oxycodone HCl/Acetaminophen [Percocet 5/325] 1 - 2 tablet PO Q4H PRN PRN 3 Days #15 tablet PRN Reason: Pain Naproxen [Naprosyn] 500 mg PO BID PRN PRN #60 tablet PRN Reason: Pain Follow-Up: Call to make an appointment with your doctor for an incision check in 1-2 weeks. You will also need a 6 week post- follow up appointment. Test results from this visit will be discussed in further detail at your follow- up appointment, if applicable. Primary Care Physician: Nai Vickers,Out of [Primary Care Provider] -
--- NOTE | 2018-09-22 07:48 | PCM.DCCSEC ---
Additional Instructions: If you experience any of the following, contact your healthcare provider. Bleeding that soaks a pad every hour for 2 hours Fever 100.4 or higher Unrelieved incision or abdominal pain Swelling, redness, discharge or bleeding from your incision or episiotomy site Your incision begins to separate Problems urinating (including inability to urinate or burning while urinating). Visual changes Severe headache Flu-like symptoms Pain or redness in one of both of your breasts Pain, warmth, tenderness or swelling in your legs, especially the calf area Frequent nausea and vomiting Symptoms of depression or anxiety If you experience any of the following, call 911 or go to the nearest Emergency Room. Chest pain Problems breathing Seizure activity Partial or complete paralysis of a body part, slurred speech, weakness or drooping of the face, or a sudden inability to walk or hold your balance Allergies/Adverse Reactions: Allergies aspirin Allergy (Verified 09/20/18 06:48) Anaphylaxis latex Allergy (Verified 09/13/18 16:01) Rash Medications to take at Discharge vitamin,calcium,fqnskrku-ndcp-mwqlk acid tablet 1 tab PO DAILY 03/23/18 Naproxen [Naprosyn] 500 mg PO BID PRN PRN #60 tablet 09/22/18 Oxycodone HCl/Acetaminophen [Percocet 5/325] 1 - 2 tablet PO Q4H PRN PRN 3 Days #15 tablet 09/22/18 The following prescriptions were given: Oxycodone HCl/Acetaminophen [Percocet 5/325] 1 - 2 tablet PO Q4H PRN PRN 3 Days #15 tablet PRN Reason: Pain Naproxen [Naprosyn] 500 mg PO BID PRN PRN #60 tablet PRN Reason: Pain Follow-Up: Call to make an appointment with your doctor for an incision check in 1-2 weeks. You will also need a 6 week post- follow up appointment. Test results from this visit will be discussed in further detail at your follow-up appointment, if applicable. Primary Care Physician: Nai Vickers,Out of [Primary Care Provider] -
[2018-09-22 08:00] VITALS: BP 109/65; PULSE 77; RESP 18; TEMP 36.4
[2018-09-22] MEDS: Senna/Docusate Sodium 1 Tablet PO (08:18)
== END 2018-09-22 09:40 | disposition home or self-care (01) | DRG 788 ==
PROVIDERS: Admitting Provider Obstetrics & Gynecology; Referring Provider Obstetrics & Gynecology; Visit Provider Obstetrics & Gynecology
PROC: 10D00Z1 Extraction of Products of Conception, Low, Open Approach (ICD-10-PCS; CPT 59514; principal; 2018-09-20 07:15)
DX: O34.211 Maternal care for low transverse scar from previous cesarean delivery (principal); Z3A.39 39 weeks gestation of pregnancy; Z37.0 Single live birth
CPT/HCPCS: 85025; 85027; 86850; 86900; 99218; J7120; A4216; G0378

== ENCOUNTER → 2021-01-02 15:33 | Outpatient (CLI) | payer OTHER, SELFPAY ==
[2021-01-02 16:26] LABS: Absolute Lymphocyte Count 1.93 X10^3/uL (0.83-4.51); Absolute Neutrophil Count 8.8 X10^3/uL (2.0-7.7); Basophil# 0.03 X10^3/uL; Basophil% 0.3 % (0-1); Eosinophil# 0.12 X10^3/uL; Hematocrit 36.2 % (37-47); Hemoglobin 11.9 g/dL (12.0-15.0); Lymphocyte # 1.93 X10^3/ul (0.83-4.51); Lymphocyte % 16.8 % (19-41); Mean Corp Hgb Conc 32.9 g/dL (32-36); Mean Corpuscular Hgb 30.4 pg (27.0-32.0); Mean Corpuscular Volume 92.6 fL (81-99); Mean Platelet Vol. 11.3 fl (6.2-12.0); Monocyte# 0.59 X10^3/uL; Monocyte% 5.1 % (0-10); NRBC Flagged by Analyzer 0 % (0-5); Neutrophil # 8.76 X10^3/uL (2.7-7.7); Neutrophil % 76.5 % (47-70); Platelet Count 297 K/mm3 (150-450); RBC Distribution Width CV 13.1 % (11.6-14.6); RBC Distribution Width SD 44.3 fl (35.1-43.9); Red Blood Count 3.91 M/mm3 (4.2-5.4); White Blood Count 11.5 K/mm3 (4.4-11.0)
[2021-01-02 16:56] LABS: Glucose Challenge Gest 1H 50g 112 mg/dL (70-140)
[2021-01-02 17:05] LABS: NATERA MAILED SPECIMEN
[2021-01-03 10:39] LABS: HIV - WCH Non-Reactive (Nonreactive); Hepatitis B Surface Antigen Non-Reactive (Nonreactive); Hepatitis C Antibody Non-Reactive (Nonreactive); Rubella IgG Reactive (Nonreactive)
[2021-04-21 14:27] LABS: Syphilis Antibodies Non-reactive
== END ==
PROVIDERS: Obstetrics & Gynecology; Referring Provider Obstetrics & Gynecology; Visit Provider Obstetrics & Gynecology
DX: Z34.83 Encounter for supervision of other normal pregnancy, third trimester (principal)
CPT/HCPCS: 82950; 85025; 86703; 86762; 86780; 86803; 86850; 86900; 86901; 87340

== ENCOUNTER → 2021-01-02 | Outpatient (CLI) | payer OTHER, SELFPAY ==
[2021-01-02 17:41] LABS: Amphetamine Urine VISTA NEGATIVE (<1000 ng/mL); Barbiturate Urine VISTA NEGATIVE (< 200 ng/mL); Benzodiazepine Urine VISTA NEGATIVE (< 200 ng/mL); Cocaine Urine VISTA NEGATIVE (< 300 ng/mL); Ecstacy Urine VISTA NEGATIVE (< 500 ng/mL); Methadone Urine VISTA NEGATIVE (< 300 ng/mL); PCP Urine VISTA NEGATIVE (< 25 ng/mL); THC Urine VISTA NEGATIVE (< 50 ng/mL); Vista UDS pH Range 6
[2021-01-07 20:07] LABS: Chlamydia By Nucleic Acid AMP Negative (Negative)
[2021-01-07 23:23] LABS: Gonococcus By Nucleic Acid AMP Negative (Negative)
[2021-01-08 18:08] LABS: HPV APTIMA, High Risk Negative (Negative)
== END | disposition home or self-care (01) ==
LOC: LABSPEC 01-03 07:09
PROVIDERS: Referring Provider Obstetrics & Gynecology; Visit Provider Obstetrics & Gynecology
DX: Z34.83 Encounter for supervision of other normal pregnancy, third trimester (principal)
CPT/HCPCS: 80307; 87086; 87088; 87491; 87591; 87624; 88175; G0145

== ENCOUNTER → 2021-02-18 15:03 | Outpatient (CLI) | payer OTHER, SELFPAY ==
[2021-02-18 15:13] LABS: Absolute Neutrophil Count 11.3 X10^3/uL (2.0-7.7); Basophil# 0.04 X10^3/uL; Basophil% 0.3 % (0-1); Eosinophil# 0.12 X10^3/uL; Eosinophils% 0.8 % (0-5); Hematocrit 36.5 % (37-47); Hemoglobin 11.9 g/dL (12.0-15.0); Lymphocyte % 14.7 % (19-41); Mean Corp Hgb Conc 32.6 g/dL (32-36); Mean Corpuscular Hgb 30.6 pg (27.0-32.0); Mean Corpuscular Volume 93.8 fL (81-99); Mean Platelet Vol. 10.5 fl (6.2-12.0); Monocyte# 0.62 X10^3/uL; Monocyte% 4.3 % (0-10); NRBC Flagged by Analyzer 0 % (0-5); Neutrophil # 11.33 X10^3/uL (2.7-7.7); Neutrophil % 79.2 % (47-70); Platelet Count 319 K/mm3 (150-450); RBC Distribution Width CV 13.6 % (11.6-14.6); RBC Distribution Width SD 46.5 fl (35.1-43.9); Red Blood Count 3.89 M/mm3 (4.2-5.4); White Blood Count 14.3 K/mm3 (4.4-11.0)
[2021-02-18 15:49] LABS: ALB/GLOB Ratio 0.8 RATIO (0.9-2.4); AST(SGOT) 14 U/L (15-37); Alanine Aminotransfer ALT/SGPT 21 U/L (13-56); Albumin, Serum 3.2 g/dL (3.2-5.0); Alkaline Phosphatase 78 U/L (45-117); Anion Gap 7 (5-15); BUN 7 mg/dL (7-18); Calcium,Total 9.3 mg/dL (8.5-10.1); Chloride 103 mmol/L (98-107); EST Glomerular Filtration Rate 104 mL/min (>60); Est Glom Filt Rate - Afr Amer 125 mL/min (>60); Globulin 4.1 g/dL (2.2-4.2); Glucose 95 mg/dL (74-106); Potassium 3.9 mmol/L (3.5-5.1); Protein, Total 7.3 g/dL (6.4-8.2); Sodium Level 137 mmol/L (136-145)
[2021-02-18 16:02] LABS: Protein, Urine (Random) 7.5 mg/dL (<11.9); Protein:Creat Ratio 65 mg/g CRE (0-200)
== END ==
PROVIDERS: Referring Provider Nurse Practitioner Women's Health; Visit Provider Nurse Practitioner Women's Health
DX: O26.899 Other specified pregnancy related conditions, unspecified trimester (principal); R51.9 Headache, unspecified; Z3A.00 Weeks of gestation of pregnancy not specified
CPT/HCPCS: 36415; 80053; 82570; 84156; 85025

== ENCOUNTER → 2021-04-21 13:18 | Outpatient (CLI) | payer OTHER, SELFPAY ==
[2021-04-21 13:39] LABS: Absolute Neutrophil Count 12.2 X10^3/uL (2.0-7.7); Basophil# 0.03 X10^3/uL; Basophil% 0.2 % (0-1); Eosinophil# 0.14 X10^3/uL; Hematocrit 35.6 % (37-47); Hemoglobin 12.1 g/dL (12.0-15.0); Lymphocyte % 11.6 % (19-41); Mean Corpuscular Hgb 31.4 pg (27.0-32.0); Mean Corpuscular Volume 92.5 fL (81-99); Mean Platelet Vol. 11.1 fl (6.2-12.0); Monocyte# 0.45 X10^3/uL; Monocyte% 3.1 % (0-10); NRBC Flagged by Analyzer 0 % (0-5); Neutrophil # 12.18 X10^3/uL (2.7-7.7); Neutrophil % 83.4 % (47-70); Platelet Count 296 K/mm3 (150-450); RBC Distribution Width CV 13.5 % (11.6-14.6); RBC Distribution Width SD 45.9 fl (35.1-43.9); Red Blood Count 3.85 M/mm3 (4.2-5.4); White Blood Count 14.6 K/mm3 (4.4-11.0)
[2021-04-21 14:04] LABS: Glucose Challenge Gest 1H 50g 139 mg/dL (70-140)
== END ==
PROVIDERS: Nurse Practitioner Women's Health; Referring Provider Obstetrics & Gynecology; Visit Provider Obstetrics & Gynecology
DX: Z34.92 Encounter for supervision of normal pregnancy, unspecified, second trimester (principal); Z13.1 Encounter for screening for diabetes mellitus
CPT/HCPCS: 36415; 82950; 85025

== ENCOUNTER → 2021-04-29 07:04 | Outpatient (CLI) | payer OTHER, SELFPAY ==
[2021-04-29 08:30] LABS: Glucose GTT-Gestation. Fasting 89 mg/dL (<105)
[2021-04-29 09:09] LABS: Glucose GTT-Gestational 1 Hr 171 mg/dL (<190)
[2021-04-29 10:27] LABS: Glucose GTT-Gestational 2 Hr 136 mg/dL (<165)
[2021-04-29 11:06] LABS: Glucose GTT-Gestational 3 Hr 92 L (<145)
== END ==
PROVIDERS: Referring Provider Obstetrics & Gynecology; Visit Provider Obstetrics & Gynecology
DX: Z13.1 Encounter for screening for diabetes mellitus (principal)
CPT/HCPCS: 36415; 82951; 82952

== ENCOUNTER 2021-06-02 12:15 | Outpatient (CLI) | payer OTHER, SELFPAY ==
[2021-06-02 13:53] LABS: Absolute Neutrophil Count 12.3 X10^3/uL (2.0-7.7); Basophil# 0.04 X10^3/uL; Basophil% 0.3 % (0-1); Eosinophil# 0.14 X10^3/uL; Eosinophils% 0.9 % (0-5); Hematocrit 33.9 % (37-47); Hemoglobin 11.2 g/dL (12.0-15.0); Lymphocyte % 13.1 % (19-41); Mean Corpuscular Hgb 30.6 pg (27.0-32.0); Mean Corpuscular Volume 92.6 fL (81-99); Mean Platelet Vol. 11.3 fl (6.2-12.0); Monocyte# 0.61 X10^3/uL; NRBC Flagged by Analyzer 0 % (0-5); Neutrophil # 12.34 X10^3/uL (2.7-7.7); Neutrophil % 80.7 % (47-70); Platelet Count 274 K/mm3 (150-450); RBC Distribution Width CV 13.7 % (11.6-14.6); RBC Distribution Width SD 46.6 fl (35.1-43.9); Red Blood Count 3.66 M/mm3 (4.2-5.4); White Blood Count 15.3 K/mm3 (4.4-11.0)
[2021-06-02 13:58] LABS: ALB/GLOB Ratio 0.7 RATIO (0.9-2.4); AST(SGOT) 15 U/L (15-37); Alanine Aminotransfer ALT/SGPT 20 U/L (13-56); Albumin, Serum 2.7 g/dL (3.2-5.0); Alkaline Phosphatase 117 U/L (45-117); Anion Gap 5 (5-15); BUN 6 mg/dL (7-18); BUN/Creat Ratio 8.9 RATIO (10-20); Calcium,Total 8.6 mg/dL (8.5-10.1); Chloride 105 mmol/L (98-107); Creatinine, Serum 0.68 mg/dL (0.55-1.02); EST Glomerular Filtration Rate 108 mL/min (>60); Est Glom Filt Rate - Afr Amer 130 mL/min (>60); Globulin 4.1 g/dL (2.2-4.2); Glucose 73 mg/dL (74-106); Potassium 3.9 mmol/L (3.5-5.1); Protein, Total 6.8 g/dL (6.4-8.2); Sodium Level 135 mmol/L (136-145)
== END 2021-06-02 23:59 | disposition short-term general hospital (02) ==
LOC: LAB 12:16
PROVIDERS: Visit Provider Obstetrics & Gynecology
DX: Z34.92 Encounter for supervision of normal pregnancy, unspecified, second trimester (principal); Z3A.26 26 weeks gestation of pregnancy
CPT/HCPCS: 36415; 80053; 85025

== ENCOUNTER 2021-06-14 09:17 | Outpatient (CLI) | payer OTHER, SELFPAY ==
--- NOTE | 2021-06-14 09:22 | US_ITS ---
STUDY: ABDOMINAL ULTRASOUND - RIGHT UPPER QUADRANT REASON FOR VISIT: Female, 30 years old right upper quadrant pain TECHNIQUE: Ultrasound evaluation of the right upper quadrant was performed with real-time and static rebollar-scale imaging. TECHNICAL QUALITY: Adequate. COMPARISON: None. FINDINGS: Liver: The liver measures 19.4 cm. There is normal echogenicity of the liver. The bile ducts are within normal limits. There is hepatic color flow. The direction of portal flow is hepatopetal. There is no demonstrated mass lesion. Gallbladder: Normal distended gallbladder. The gallbladder wall measures 2 mm. There is a negative sonographic Anne''s sign. There is no pericholecystic fluid. There are multiple echogenic structures within the gallbladder, consistent with multiple gallstones. Common Bile Duct (C.B.D.): The common bile duct measures 4 mm. Pancreas: Normal size of the head, body and tail of the pancreas. There is normal echogenicity of the pancreas. There is no demonstrated pancreatic mass or cyst. Right Kidney: Normal size of the right kidney. The right kidney measures 13.3 cm. Normal renal cortex. The right cortex measures 1.0 cm. There is no demonstrated renal mass or cyst. There is no right hydronephrosis. US/Abdomen Limited IMPRESSION: Cholelithiasis. Electronically Signed: Krishan Walden MD at 11:24 EST ,
--- NOTE | 2021-06-14 09:51 | US_ITS ---
STUDY: SECOND AND THIRD TRIMESTER OBSTETRICAL ULTRASOUND - LIMITED REASON FOR EXAM: Female, 30 years old growth LMP: 10/21/2020 PRIOR ULTRASOUND: None. TECHNIQUE: Transabdominal TECHNICAL QUALITY: Adequate. FINDINGS: There is a single intrauterine fetus. The fetus is in a breech presentation. There is demonstrated cardiac activity with a heart rate of 153 bpm. There is a normal amniotic fluid volume. The largest amniotic fluid pocket measures 5.7 cm. The amniotic fluid index (ESPERANZA) is 17.7 cm. The placenta is anterior with a complete previa. There are Grade 1 placental changes. The cervix measures 4.8 cm cm in length. BIOMETRY: BPD: 8.5 cm: 34 weeks, 2 days HC: 33.0 cm: 37 weeks, 3 days AC: 30.4 cm: 34 weeks, 2 days FL: 6.4 cm: 33 weeks, 0 days Age by LMP: 33 weeks, 5 days. SHANE by LMP: 07/20/2021. age by current US: 34 weeks, 5 days. SHANE by current US: 07/21/2021. Estimated weight: 2346 grams, +/- 352 grams, 54 percentile. Gender: US/OB Limited With Biometrics IMPRESSION: Living intrauterine of 34 weeks 5 days as described above. Electronically Signed: Krishan Walden MD at 11:38 EST ,
== END 2021-06-14 23:59 | disposition home or self-care (01) ==
LOC: US 09:19
PROVIDERS: Referring Provider Obstetrics & Gynecology; Visit Provider Obstetrics & Gynecology
DX: O26.893 Other specified pregnancy related conditions, third trimester (principal); R10.11 Right upper quadrant pain; O44.03 Complete placenta previa NOS or without hemorrhage, third trimester; O32.1XX0 Maternal care for breech presentation, not applicable or unspecified; O98.513 Other viral diseases complicating pregnancy, third trimester; U07.1 COVID-19; Z3A.34 34 weeks gestation of pregnancy
CPT/HCPCS: 76705; 76816

== ENCOUNTER 2021-06-30 17:03 | Outpatient (CLI) | payer OTHER, SELFPAY | END 2021-06-30 23:59 | disposition home or self-care (01) | PROVIDERS: Visit Provider Obstetrics & Gynecology | DX: Z36.85 Encounter for antenatal screening for Streptococcus B (principal) | CPT/HCPCS: 87081 ==

== ENCOUNTER 2021-07-14 16:05 | Outpatient (CLI) | payer OTHER, SELFPAY ==
[2021-07-14 16:26] VITALS: BP 133/84; PULSE 91; TEMP 36.7; O2SAT 96
[2021-07-14 16:27] VITALS: PULSE 92; O2SAT 95
[2021-07-14 16:30] VITALS: BMI 37.5
--- NOTE | 2021-07-15 16:13 | OB.TRI.PN_ITS ---
Progress Notes Date of Service: 07/14/21 Progress Note: Patient presents for triage evaluation secondary to dec movememnt FHT: 130 Moderate variability reactive no decelerations category I tracing [place]: no regular Contractions Assessment and plan: decreased movement Reactive NST, reassuring maternal and status patient discharged to home to follow-up as scheudled. See problem list details for additional plan information. Laboratory Studies: Laboratory Tests 07/14/21 Range/Units 16:25 COVID-19 (RAJENDRA) Not Detected (Not Detect) Charges/Coding Procedures Urinary/Genital 52xxx-59xxx: 20219-86 non-stress test Interp
== END 2021-07-14 23:59 | disposition home or self-care (01) ==
LOC: WPOUT 16:14 → WP 16:14
PROVIDERS: Nurse Practitioner Women's Health; PCP Obstetrics & Gynecology; Referring Provider Obstetrics & Gynecology; Visit Provider Obstetrics & Gynecology
DX: O36.8190 Decreased fetal movements, unspecified trimester, not applicable or unspecified (principal); Z3A.00 Weeks of gestation of pregnancy not specified
CPT/HCPCS: 59025; 59050; 87635; 99218; G0378; U0003; U0005

== ENCOUNTER 2021-07-21 05:35 | Inpatient (IN) | payer OTHER, SELFPAY ==
[2021-07-21] VITALS (20 sets, daily range): BP systolic 81–134; BP diastolic 46–79; PULSE 63–100; RESP 14–18; TEMP 36–36.8; O2SAT 96–100; BMI 37.8
--- NOTE | 2021-07-21 05:55 | HP.PCM_ITS ---
History and Physical Date of Admission: 07/21/21 [facility] [id number] [place] [address] [phone] OFFICE VISITDate of Service: 07/14/21 MR#:[id number]: FREDO MATUTE [facility] #:[id number]:1990 Provider: LARRY Blunt/Sex: 30/F Locat ion:BMS.BWCStatus:Signed Intake Vital Signs 07/14/21 15:37 Height 5 ft 8 in Weight: 249 lb 2 oz BMI 37.8 BP 112/68 Intake Visit Reasons: 38 WK OB Allergies aspirin Allergy (Verified 07/14/21 15:37) Anaphylaxis latex Allergy (Verified 07/14/21 15:37) Rash Medications multivitamin no.47-iron fum 27 mg-folate no.1 1 mg-dha 300 mg capsule cap PO 12/27/20 [History Confirmed 07/14/21] cyclobenzaprine 10 mg tablet 10 mg PO TID PRN #30 tab 06/16/21 [Rx Confirmed 07/14/21] prednisone 10 mg tablet 10 mg PO DAILY 06/30/21 [History Confirmed 07/14/21] Last Menstral Period: 10/21/20 Zika: Zika virus screening: Negative : No PFSH PFSH Medical History screening encounter Lab test positive for detection of COVID-19 virus Surgical History delivery delivered H/O hand surgery History of appendectomy [place] teeth extracted Family History Father Hypertrophic cardiomyopathy Social History number of children: 2 current occupational status: employed current occupation: [employer] Smoking Status: Never smoker alcohol intake: never substance use type: does not use caffeine: No seatbelt use: always do you feel safe at home: Yes additional social history: 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 [employer] Pregancy History 3 Elective abortions Hx Para 2 Spontaneous abortions Hx # Term Pregnancies 2 Ectopic pregnancies Hx # Pregnancies Multiple births # of living children 2 Past Pregnancies Del. Date Name GA/Weeks Outcome Route Bth Weight Gen Labor Lgth Anesthesia Del Locatn Provider FOB 10/17/15 Shekhar 41 live - full term 7 lbs. 10 oz Male 36 hours epidural [facility] Dr. Carpenter 09/20/18 Tyraconnie 39 live - full term 8lbs 7oz Male spinal [facility] FRANSICO Олег HPI 38 WK OB Details: FREDO MATUTE is a 30 year old who presents for routine OB visit. OB Visit SHANE Calculator Estimated Delivery Date Method Current WG Current Estimate 07/28/21 LMP (Certain) 38w 0d Other Estimates 07/24/21 Ultrasound #1 38w 4d Expected Delivery Route/Plan RLTCS Specific Issue/Plans Covid status: positive, counseled regarding risk of covid in vs vaccination and declined vaccination Flu vaccine: given Tdap vaccine: given Rhogam: na LARC form signed: yes Problem list reviewed and updated with the most current plan of care details and appropriate orders placed. Relevant counseling for the gestational age provided. Continue routine care and follow up unless otherwise noted in visit notes/problem list details Initial Weight: Not Recorded Date EGA Weight BP Urine Prot Glucose FHR FuHt Pres Dilation Effaced St Visit Note 01/02/21 10w 3d 240 lb 4 oz 120/84 185 GP - CRL 43mm consistent with LMP 01/31/21 14w 4d 239 lb 4 oz 118/74 Negative Negative 160 GP - no cramping or bleeding. Anatomy scan ordered. 02/18/21 17w 1d 238 lb 6 oz 120/76 Negative Negative 151 MH-work in for blurry vision, dizziness, headache. States elevated BP by school nurse this AM. OK now. Nausea also-Rx phenergan. Force fluids, small freq meals. Pre E labs. Will discuss with Dr Gong. 02/28/21 18w 4d 241 lb 122/88 140 SM_ no vb cramping doing better 03/24/21 22w 0d 242 lb 114/70 Negative Negative 154 MH-No VB, LOF. Has rpt US to check placenta 05/05/21. 04/21/21 26w 0d 247 lb 6 oz 126/80 Negative Negative 145 26 SM- no vb lof good fm no regular ctx 05/05/21 28w 0d 245 lb 108/66 Negative Negative 147 28 MH-No Vb, LOF. Good FM. Rpt US today:previa resolved. Tdap, Larc 06/02/21 32w 0d 248 lb 140 32 SM- no vb lof good fm no regular ctx SM- no vb lof good fm no regular ctx co RUQ intermittent pain, sometimes with eating, has nausea and emesis occasionally after. evlatuion ordered discussed low fat diet 06/16/21 34w 0d 249 lb 138/83 Negative Negative 140 34 Sm- no vb lof good fm no regular ctx Sm- no vb lof good fm no regular ctx 4sciatic pain signficiant 06/23/21 35w 0d 112/80 Negative Negative 140 35 SM- no vb lof good fm no regular ctx taking steroid dose pack. 06/30/21 36w 0d 248 lb 138/88 150 Cephalic SM- no vb lof good fm no regular ctx intermittent RUQ pain, sciatic pain improved with steroids 07/07/21 37w 0d 248 lb 132/82 145 36 SM- no vb lof good fm n oregular ct finished steroid 07/14/21 38w 0d 249 lb 2 oz 112/68 Negative Negative 139 38 Cephalic 1 30 -4 MH-spotting 2 days ago. Irreg CTX last 2 days. Dec FM last 3 days. CS planned 07/21. Consent signed per Dr Gong. To WP for NST only ACOG First Trimester First Trimester: Desire for , Alcohol, Tobacco Cessation, Illicit/Recreational Drug/Substance Use, Intimate Partner Violence, Barriers to care, Unstable Housing, Communication Barriers, Environmental/Work Hazards, Anticipated Course of Care, Toxoplasmosis Precations, Use of Any medications, Sexual activity, Exercise, Dental Care, Sauna/Hot tub use, Seat Belt use, Childbirth classes/Hospital facilities, Travel, Indications for Ultrasound and Screening for Aneuploidy; Discussed Second Trimester Second Trimester: Signs and Symptoms of Labor, Selecting a care provider, Reproductive Life Planning & Contreception, Care Planning, Depression/Anxiety and Intimate Partner Violence; Discussed Tobacco Cessation Third Trimester Third Trimester: Pain Management Plans, Labor support person(s), Immediate Larc, Signs and Symptoms of Preeclampsia and Infant Feeding No Diagnostics Diagnostics Diagnostics: Gest Glucose Tolerance MG/DL Glucose 1 Hr 50 gm 139 mg/dL (70-140) Hgb 11.2 g/dL (12.0-15.0) L Hct 33.9 % (37-47) L Details: HIV: Urine Culture: Sequential Screen: NIPT Screen: ROS Const Reports system reviewed and no additional complaints, except as documented Card Reports system reviewed and no additional complaints, except as documented Resp Reports system reviewed and no additional complaints, except as documented GI Reports system reviewed and no additional complaints, except as documented, Reports nausea Reports system reviewed and no additional complaints, except as documented Musc Reports system reviewed and no additional complaints, except as documented all other systems reviewed and negative Exam Const General: cooperative, healthy appearing, comfortable HENMT Head: normal to inspection Nose: external nose normal Face and sinus: normal facial exam Neck Neck: normal visual inspection, full ROM, no lymphadenopathy Thyroid: thyroid normal Chest Chest palpation & inspection: normal inspection of the chest Resp Effort & Inspection: normal respiratory effort GI Inspection: normal to inspection Palpation: soft, other (gravid uterus) Other: infant vertex and appropriate size for gestational age Other: Cervical Exam: Extrem General: pedal edema Results POC Urinalysis 2 Dip (Clinic) Office Urine Glucose Negative Last Edit by Sameera Chau on 07/14/21 15:47 Office Urine Protein Negative Last Edit by Sameera Chau on 07/14/21 15:47 Coding Level of Care Code OB Routine Diagnoses Supervision of normal Z34.83 Normal : other normal Trimester: third trimester History of delivery, currently O34.219 Z3A.36 Weeks of gestation: 36 weeks Lab test positive for detection of COVID-19 virus U07.1 Decreased movement O36.8190 Assessment and Plan Assessment and Plan (1) Supervision of normal : Status: Acute Qualifiers: Normal : other normal Trimester: third trimester Qualified Code(s): Z34.83 - Encounter for supervision of other normal , third trimester Comment: [id number] SHANE: 07/28/21, girl Ailee PC: Maria D Corrigan Spouse: Олег (2) History of delivery, currently : Status: Acute Comment: previous plan RLTCS, scheduled 07/21/21 @ 7:30am; consented per (3) : Status: Acute Qualifiers: Weeks of gestation: 36 weeks Qualified Code(s): Z3A.36 - 36 weeks gestation of Comment: carrier and ntd screening declined. NIPT low risk. Anatomy US normal. GBS neg (4) Lab test positive for detection of COVID-19 virus: Status: Acute Comment: No aspirin due to allergy noted. 32 and 36 wk growth US (5) Decreased movement: Status: Acute Comment: To for NST only today Orders: Orders: COVID 19, PCR [facility](RT COLLECT) Today Z3A.36 Plan - Kia Alcala QUICK SERVICE TECHNICIAN, QUICK SERVICE TECHNICIAN-C: problem list reviewed and updated for most current plan of care and appropriate orders placed. Relevant counseling for the gestational age appropriate provided and ACOG education checklist updated. Continue routine care and follow up. Plan Details Other Orders: Orders: POC Urinalysis 2 Dip (Clinic) Today UPDATE- I have seen the patient and performed any clinically relevant updates to the history and physical exam. Kaylynn Gong MD
[2021-07-21] MEDS: Lactated Ringers 1,000 ML 999 ML IV (06:17)
[2021-07-21] MEDS: Acetaminophen 500 MG Tablet 1000 MG PO ×3 (06:23→18:31)
[2021-07-21 06:36] LABS: Absolute Lymphocyte Count 1.96 X10^3/uL (0.83-4.51); Absolute Neutrophil Count 8.7 X10^3/uL (2.0-7.7); Basophil# 0.02 X10^3/uL; Basophil% 0.2 % (0-1); Eosinophil# 0.12 X10^3/uL; Eosinophils% 1.1 % (0-5); Hematocrit 32.9 % (37-47); Hemoglobin 11.4 g/dL (12.0-15.0); Lymphocyte # 1.96 X10^3/ul (0.83-4.51); Lymphocyte % 17.2 % (19-41); Mean Corp Hgb Conc 34.7 g/dL (32-36); Mean Corpuscular Hgb 31.9 pg (27.0-32.0); Mean Corpuscular Volume 92.2 fL (81-99); Mean Platelet Vol. 11.4 fl (6.2-12.0); Monocyte# 0.44 X10^3/uL; Monocyte% 3.9 % (0-10); NRBC Flagged by Analyzer 0 % (0-5); Neutrophil # 8.73 X10^3/uL (2.7-7.7); Neutrophil % 76.7 % (47-70); Platelet Count 253 K/mm3 (150-450); RBC Distribution Width CV 14.5 % (11.6-14.6); RBC Distribution Width SD 48.9 fl (35.1-43.9); Red Blood Count 3.57 M/mm3 (4.2-5.4); White Blood Count 11.4 K/mm3 (4.4-11.0)
[2021-07-21] MEDS: Sodium Citrate/Citric Acid 30 ML UDC PO (07:08)
[2021-07-21] MEDS: Cefazolin 2 GM in 0.9% Normal Saline 100 ML IV (07:20)
--- NOTE | 2021-07-21 08:33 | EX.PCM.OBRPT ---
Assessment & Plan (1) RUQ abdominal pain: COMMENT: labs us ordered, gen surgery consult for after delivery, cholelithiasis. WSA appt. 08/04 @ 9, 2 wk pp visit [facility] 08/04 @ 10 (2) Abnormal glucose affecting : COMMENT: normal 3gtt (3) Obesity affecting , antepartum: COMMENT: nl 1 tm gct. encouraged healthy weight gain. (4) Lab test positive for detection of COVID-19 virus: COMMENT: No aspirin due to allergy noted. 32 and 36 wk growth US (5) : QUALIFIERS: Weeks of gestation: 36 weeks Qualified Code(s): Z3A.36 - 36 weeks gestation of COMMENT: carrier and ntd screening declined. NIPT low risk. Anatomy US normal. GBS neg (6) History of delivery, currently : COMMENT: previous plan RLTCS, scheduled 07/21/21 @ 7:30am; consented per (7) Supervision of normal : QUALIFIERS: Normal : other normal Trimester: third trimester Qualified Code(s): Z34.83 - Encounter for supervision of other normal , third trimester COMMENT: [id number] SHANE: 07/28/21, girl Ailee PC: Maria D Corrigan Spouse: Олег (negative covid test) (8) delivery delivered: COMMENT: 39 RLTCS girl Ailee Maternal Data Information SHANE Calculator Estimated Delivery Date Method Current WG Current Estimate 07/28/21 LMP (Certain) 39w 0d Other Estimates 07/24/21 Ultrasound #1 39w 4d Final SHANE Source: LMP Details Operative Information Date of Procedure: 07/21/21 Pre-Operative Diagnosis: Previous Post-Operative Diagnosis: same Indications for : Repeat Elective Classification: Scheduled Type of Anesthesia: Spinal Special Medications: marcial Antibiotic Given: Ancef 2 grams IV x1 Drain: Russell to straight drain Estimated Blood Loss: 800 Fluids Replaced: crystalloid Findings Description of Procedure: Spinal anesthesia was placed without difficulty. Russell catheter was placed. The patient was placed in the dorsal supine position with leftward tilt. Patient was prepped and draped in the normal sterile fashion. Pfannenstiel skin incision was made with the scalpel and carried through to the underlying layer of fascia with the scalpel. Fascia was nicked in the midline and the incision extended laterally. The rectus bellies were dissected off superiorly and inferiorly with out complication both sharply and bluntly. The peritoneum was entered digitally. The incision was stretched and a low transverse uterine incision was made with the scalpel. The 's head was delivered atraumatically followed by the anterior and posterior shoulders without complication the rest of the delivered. The cord was clamped and cut and the was handed off to awaiting nurse. The placenta was delivered spontaneously immediately following and was noted to be intact and have a three-vessel cord. The uterus was exteriorized cleared of all clots and debris, and the incision was closed in a double layer closure using #1 Monocryl. small amount bleeding at incision, marcial applied and hemostasis noted. The ovaries and fallopian tubes were noted to be within normal limits. The uterus was returned to the maternal abdomen and gutters were cleared of all clots and debris. The peritoneum was closed with 3-0 Monocryl in a running fashion. Gloves were changed prior to fascial closure. Fascia was closed with 0 PDS in a running fashion. Subcutaneous tissue was copiously irrigated and the skin was closed with 3-0 Monocryl in a subcuticular fashion. Mepilex dressing was applied without complication. Patient was taken to recovery in stable condition. It was discussed with the patient that based on the clinical information obtained during this encounter, combined with her history, at this time I would recommend cesareans for future deliveries if further pregnancies are desired. Amniotic Membrane Rupture Type: Artificial Amniotic Fluid Description: Clear Placenta Disposition: [facility] Cord Vessel Description: 3 Vessels Cord Entanglement: None Delayed Cord Clamping: Yes Complications Risks of Surgery Discussed w/Patient: Bleeding, Infection, Need for Future C-Sections and Injury to surrounding structure(s) including bowel and bladder Vaginal Delivery Complication Complications: None Admit VTE Documentation VTE Present on Admission: No VTE Mechan Device Prophylaxis: SCD's Procedures Urinary/Genital 52xxx-59xxx: 60904 Delivery [facility]
[2021-07-21] MEDS: Oxytocin 30 units/NS 500 ml 30 UNITS/500 ML IV.SOLN 167 UNITS IV (08:35)
--- NOTE | 2021-07-21 08:35 | PCM.DC ---
Discharge Instructions Diet Discharge Diet: No restrictions Activity Discharge Activity: May Not Drive (for 2 weeks or while taking narcotic pain medications.), May Shower and May Take a Tub Bath (in 7 days) May shower in (days): 0 May resume sexual activity in: 4-6 weeks Weight Bearing Status: Full weight bearing Lifting Restrictions: 20 pounds Dressing / Incision Call your doctor if your incision/area has: Continuous Slow Oozing, Sudden Increased Bleeding, Increased Pain/ Swelling, Increased Redness and Foul Smelling Discharge Call your doctor if you observe: Fever of 101 or Higher and Using more than 1 pad per hour (for 2 hours) Suture Line Care: Avoid Pulling/Pushing and Avoid Pinching/Bending Cleanse incision/area with: Soap & Water and Keep Dressing Clean & Dry Follow Up Care Please Follow Up With: Kaylynn Gong MD When: Call [phone] to make an appointment for an incision check in 1-2 weeks. Test Results: Test results from this visit will be discussed in further detail at your follow-up appointment, if applicable. Discharge Plan Admission Admit Date/Time: 07/21/21 05:35 Attending Provider: Kaylynn Gong Discharge Orders/Prescriptions Prescriptions: New oxycodone-acetaminophen [Percocet] 5-325 mg tablet 1 tab PO Q6H PRN (Reason: pain) 7 Days Qty: 20 RF: 0 naproxen [naproxen] 500 MG tablet 500 mg PO BID PRN PRN (Reason: Pain) Qty: 30 RF: 1 Continued PNV-DHA 27 mg iron-1 mg -300 mg capsule 1 cap PO DAILY RF: 0 cyclobenzaprine 10 mg tablet 10 mg PO TID PRN (Reason: muscle spasm) Qty: 30 RF: 2 Disposition Disposition (needs filled in before D/C Order can be placed): Home, Self Care
[2021-07-21] MEDS: Ketorolac 30 MG/ML Syringe IV ×3 (09:35→21:57)
[2021-07-21] MEDS: Lactated Ringers 1,000 ML 100 ML IV (12:14)
[2021-07-21] MEDS: 0.9% Saline Lock 10 ML Syringe IV (21:57)
[2021-07-21] MEDS: Enoxaparin 40 MG/0.4 ML Syringe SC (21:57)
--- NOTE | 2021-07-21 22:57 | NURSING ---
pt voided, but missed hat
[2021-07-22] MEDS: Acetaminophen 500 MG Tablet 1000 MG PO ×3 (00:16→12:30)
[2021-07-22 00:17] VITALS: BP 108/45; PULSE 73; RESP 16; TEMP 36.6; O2SAT 99
[2021-07-22] MEDS: Ketorolac 30 MG/ML Syringe IV (03:23)
[2021-07-22] MEDS: 0.9% Saline Lock 10 ML Syringe IV (03:24)
[2021-07-22 03:26] VITALS: BP 121/68; PULSE 67; RESP 16; TEMP 36.6
[2021-07-22 06:24] LABS: Hematocrit 26.6 % (37-47); Mean Corp Hgb Conc 33.8 g/dL (32-36); Mean Corpuscular Hgb 31.5 pg (27.0-32.0); Mean Platelet Vol. 11.1 fl (6.2-12.0); Platelet Count 232 K/mm3 (150-450); RBC Distribution Width CV 14.6 % (11.6-14.6); RBC Distribution Width SD 49.6 fl (35.1-43.9); Red Blood Count 2.86 M/mm3 (4.2-5.4); White Blood Count 11.9 K/mm3 (4.4-11.0)
--- NOTE | 2021-07-22 07:55 | PCM.PN.OB ---
Subjective Subjective Patient doing well without complaints. Tolerating PO. Ambulating and voiding without difficulty. Feeding well. Denies chest pain, shortness of breath, calf pain/swelling, fevers, chills, lightheadedness. Objective Data Objective Data Vital Signs: Vital Signs Temp Pulse Resp BP Pulse Ox 97.9 F 67 16 121/68 H 99 07/22/21 03:26 07/22/21 03:26 07/22/21 03:26 07/22/21 03:26 07/22/21 00:17 Oxygen Delivery Method Room Air Weight: 248 lb 10.903 oz Body Mass Index (BMI) 37.8 Intake & Output: Intake and Output for Last 24 Hours 07/20/21 07/21/21 07/22/21 23:59 23:59 23:59 Intake Total 2373.33 / 2373.33 Output Total 1875 / 1875 500 / 500 Balance 498.33 / 498.33 -500 / -500 Lab / Micro Data Result Diagrams: 07/22/21 06:10 Labs: Laboratory Results - last 24 hr 07/22/21 06:10: WBC 11.9 H, RBC 2.86 L, Hgb 9.0 L, Hct 26.6 L, MCV 93.0, MCH 31.5, MCHC 33.8, RDW Std Deviation 49.6 H, RDW Coeff of Leena 14.6, Plt Count 232, MPV 11.1 Physical Exam Const alert and oriented x3 HEENT normocephalic Eyes PERRL Neck full ROM Resp normal respiratory effort GI soft to palpation GI Narrative: FF below U. Dressing dry and intact Palpation: tender other (appropriately) Assessment & Plan (1) delivery delivered: COMMENT: 39 RLTCS girl Ailee PLAN: s/p LTCS PPD # 1 1. routine post care 2. bottle feeding- support given 3. rh positive 4. rubella immune 5. home today
[2021-07-22 09:13] VITALS: BP 104/64; RESP 16; TEMP 36.4
[2021-07-22] MEDS: Naproxen 500 MG Tablet PO (10:29)
[2021-07-22] MEDS: Enoxaparin 40 MG/0.4 ML Syringe SC (10:29)
[2021-07-22] MEDS: Senna/Docusate Sodium 1 Tablet PO (12:17)
== END 2021-07-22 12:55 | disposition home or self-care (01) | DRG 787 ==
PROVIDERS: Admitting Provider Obstetrics & Gynecology; Visit Provider Obstetrics & Gynecology
PROC: 10D00Z1 Extraction of Products of Conception, Low, Open Approach (ICD-10-PCS; CPT 59514; principal; 2021-07-21 07:15)
DX: O34.211 Maternal care for low transverse scar from previous cesarean delivery (principal); O26.62 Liver and biliary tract disorders in childbirth; K80.20 Calculus of gallbladder without cholecystitis without obstruction; O99.214 Obesity complicating childbirth; O99.814 Abnormal glucose complicating childbirth; O36.8130 Decreased fetal movements, third trimester, not applicable or unspecified; Z37.0 Single live birth; Z3A.39 39 weeks gestation of pregnancy; Z86.16 Personal history of COVID-19
CPT/HCPCS: 59025; 59050; 85025; 85027; 86850; 86900; 86901; 99218; J7120; A4216; G0378

== ENCOUNTER 2021-08-27 09:54 | Day surgery (SDC) | payer OTHER, SELFPAY ==
--- NOTE | 2021-08-26 16:24 | EKG12_ITS ---
Test Reason : PRE OP Blood Pressure : / mmHG Vent. Rate : 065 BPM Atrial Rate : 065 BPM P-R Int : 140 ms QRS Dur : 086 ms QT Int : 420 ms P-R-T Axes : 019 -19 001 degrees QTc Int : 436 ms Normal sinus rhythm Normal ECG Confirmed by MARISOL RAMIREZ, ANTONIO ([id number]), photograph editor GUIDO NAVAS ([id number]) on 08/27/2021 10:02:10 AM Referred By: Jose Alfredo Baum Confirmed By:ANTONIO DAMON MD
[2021-08-27] VITALS (8 sets, daily range): BP systolic 96–134; BP diastolic 56–82; PULSE 57–80; RESP 14–16; TEMP 36.1–36.4; O2SAT 95–100; BMI 34.2
--- NOTE | 2021-08-27 | GALL_PTH ---
PATIENT: FREDO MATUTE [place] [facility] [id number] AGE/SX: 31/F ROOM: RE08/27/[address]: Dr. Jose Alfredo Baum MD : 1990 BED: DIS: 08/27/2021 SPEC #: [id number] RECD: 08/27/21 14:59 STATUS: YVONNE KIRSTY #: [id number] EULOGIO: 08/27/21 00:[address]: Jose Alfredo Baum DEPT: SURGICAL PATHOLOGY RECD BY: Shemar Ballesteros ENTERED: 08/28/21 08:34 SP TYPE: LAMAR MORENO DR: No Primary Care Phys Tissues: Gallbladder, NOS Procedures: Surgery Specimen Level III HEADER OPERATION: Laparoscopic cholecystectomy with IOC PRE-OP DIAGNOSIS: Gallstones, symptomatic cholelithiasis TISSUE SUBMITTED: Gallbladder MICROSCOPIC DIAGNOSIS Gallbladder, cholecystectomy: Chronic cholecystitis and cholelithiasis. /SJ 08/29/2021 MICROSCOPIC DESCRIPTION Slides are reviewed. GROSS DESCRIPTION Received is one container labeled with the patient's name and designated gallbladder. The specimen consists of a gallbladder measuring 9 cm in length and up to 4.5 cm in diameter. The external surface is pink-holman, smooth and glistening for the most part. Focally it is granular, hemorrhagic and contains cautery artifact. The gallbladder contains green mucoid bile and multiple mulberry greenish-yellow stones measuring in aggregate 4 x 4 x 1 cm and 0.1 to 1 cm in greatest dimension. The mucosa is bile-stained and without any mass lesions. The gallbladder wall measures up to 0.1 cm in thickness. Hydraulic Operator sections from the gallbladder and the cystic duct are submitted in one cassette. / SJ:CW 08/29/2021 TC:3 CPT: 37300
[2021-08-27 10:23] LABS: Internal QC Validated? YES +Cl - CLEAR BKGD; Pregnancy, Urine Negative Negative
[2021-08-27] MEDS: Lactated Ringers 1,000 ML 15 ML IV (10:40)
--- NOTE | 2021-08-27 12:10 | PCM.HP.BLA ---
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 [facility] HPI HPI HPI: FREDO MATUTE, is a 30 F who presents to the office today for who presents with gallstones and recent right upper quadrant pains. They are referred for surgical consultation from [facility]. Patient is 2 weeks from planned for with her third child. She states that during her she experienced excruciating right upper quadrant pain for a couple of months. However, now it has been 1 to 1-1/2 months since she had such symptoms. She admits that she is currently restricting her diet of any greasy or fried foods. Previously the pain was described as sharp with some radiation into her right shoulder and occasional burning sensation. Associated symptoms included some nausea and multiple episodes of vomiting. She notes that the pain primarily seem to follow meals?particularly lunch?but admits that sometimes did occur at random. She denies ever experiencing any fevers or chills in conjunction with this pain. Although her pains are now better, she does remark that she does seem to have less of an appetite and questions whether this is simply because she just had a . Patient describes disrupted bowel movement schedule. She states that she has constipation which is followed by diarrhea and this has been an issue even before her . She had significant constipation immediately following her but now seems to be more regular. By this she describes not having a bowel movement for 4 to 5 days and then the following bowel movements are characterized by diarrhea and cramps. Previous work-up has included: Abdominal ultrasound 06/23/2021 that showed gallstones, no gallbladder wall thickening, ducts within normal limits, and no evidence of pericholecystic fluid. ROS General General: No weight change, appetite, fatigue, colon cancer, breast cancer or weakness HEENT HEENT: No difficulty swallowing, eye injury, eye surgery, swollen glands or hoarseness Endo Endocrine: No thyroid disease, diabetes mellitus, thyroid cancer, Hair loss, heat intolerance or cold intolerance Cardio Cardiovascular: No murmur, pacemaker, heart disease, atrial fibrillation, high blood pressure, heart attack, heart stent, palpitations, shortness of breat with exertion or chest pain Psych Psychiatric: No depression, anxiety or hearing voices Resp Respiratory: No shortness of breath, No sleep apnea, No cough, No COPD, No asthma, No emphysema and No wheezing Gastro Gastrointestinal: Yes abdominal pain, Yes nausea or vomiting, Yes diarrhea, Yes constipation, No blood in stool, No acid reflux, No hemorrhoids, No ulcers, Yes gallbladder problem and No black,tarry stools Raj Hematologic: No blood thinners, No blood disorders, No bleeding, No anemia and No blood clots Neuro Neurologic: No weakness Exam Const General: cooperative, healthy appearing, comfortable and no acute distress Orientation: alert, awake and oriented x3 Resp Effort & Inspection: normal respiratory effort Auscultation: clear to auscultation bilaterally, no rales, no rhonchi and no wheezes Cardio Rate: regular rate Rhythm: regular rhythm Heart Sounds: S1 normal and S2 normal GI Inspection: obesity, scar (Umbilical port site scar from prior laparoscopy well-healed) and striae Palpation: soft, no hernias and tender in the RUQ; Anne's sign negative Assessment and Plan Assessment and Plan (1) Gallstones: Status: Acute Comment: Patient finally has gallstones on recent ultrasound imaging but has history of severe right upper quadrant pain and some persistent right upper quadrant tenderness. Plan - Dr. Jose Alfredo Baum MD: Lap william with possible IOC recommended (2) Symptomatic cholelithiasis: Status: Acute Comment: This is a 30-year-old female, recently , who presents with signs and symptoms of symptomatic cholelithiasis. 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 This could reflect some underlying chronic cholecystitis. Given the intensity of her prior reported symptoms and the potential for having more children, I do recommend proceeding with cholecystectomy. I do not see cause for urgent intervention and have counseled Mrs. Matute that this could be performed electively. As such, we agree that she should take some additional time to recover from her recent before undertaking this proposed operation. Otherwise, we will plan for a laparoscopic cholecystectomy with possible intraoperative cholangiogram as an outpatient in another 2 to 3 weeks. Plan - Dr. Jose Alfredo Baum MD: ?Laparoscopic cholecystectomy with possible intraoperative cholangiogram in 2 to 3 weeks. We will schedule at patient's convenience. I have re-examined the patient. There are no clinical changes since date of exam. Other patient nor her have any questions. Plan to proceed with laparoscopic cholecystectomy and possible intraoperative cholangiogram as discussed above.
[2021-08-27] MEDS: Cefazolin 2 GM in 0.9% Normal Saline 100 ML IV (12:11)
--- NOTE | 2021-08-27 13:19 | RAD_ITS ---
CLINICAL HISTORY: Female, 31 years old. Right upper quadrant pain, cholecystectomy PROCEDURE: CHOLANGIOGRAM - intraoperative CONSENT: Informed consent obtained SEDATION: General FLUOROSCOPY TIME (if supplied): (24) seconds. Cine loops were obtained via fluoroscopy. One run has 43 images, the other 103 images Placement of the catheter and the procedure were performed by: Dr. Baum Fluoroscopy was provided by Shelia Ibarra, who was present in the room time of the procedure. TECHNIQUE: (All elements of maximal sterile barrier technique followed, including US elements as applicable) After removal of the gallbladder, the cystic duct remnant was cannulized and contrast injected in a retrograde manner. There is normal filling of the common bile duct and biliary tree. There is free flow of contrast into the duodenum. No dilatation of the biliary tree, no filling defect to suspect retained stone. No extravasation RAD/Cholangiogram/ O R,Initial IMPRESSION: Normal intraoperative cholangiogram Electronically Signed: Galileo Faye MD at 17:37 EDT ,
--- NOTE | 2021-08-27 13:54 | OP.PCM_ITS ---
Report of Operation Date of Procedure: 08/27/21 Pre-Operative Diagnosis: Cholelithiasis Post-Operative Diagnosis: Mild chronic cholecystitis Surgery/Procedure Performed:: Laparoscopic cholecystectomy with intraoperative cholangiogram Description of Surgical Findings:: ? Mild adhesions of the gallbladder to the surrounding anatomy near the infundibulum ? Normal gallbladder anatomy with single cystic duct and cystic artery ? Normal cholangiogram with antegrade flow through ampulla Vater to the duodenum retrograde filling into the hepatic ducts Surgeon: Jose Alfredo Baum health insurance sales agent: Jennifer Erickson Type of Anesthesia: General/Supplemental Anesthesiologist: Gary Cleveland Estimated Blood Loss (mL): 15 Description of Procedure: After proper identification in the preoperative holding area the patient was brought to the operating room where she will positioned supine on the operating room table. Preoperatively SCDs were placed and antibiotics were administered. General anesthesia was then induced. Patient's abdomen was prepped and draped in usual sterile fashion. A formal timeout was conducted to confirm both patient and the procedure. Procedure was begun with a supraumbilical incision which was extended deeply down to the level of the fascia. The fascia was elevated and incised, as well as the peritoneum. A finger sweep was performed to ensure there were no underlying adhesions and a 12 mm trocar was inserted. Pneumoperitoneum was established at 15 mmHg. 3 additional trocars were placed in the epigastrium and in the right upper quadrant (5 mm). Inspection of the peritoneum revealed no inadvertent injury to the viscera below. The gallbladder was visualized with mild inflammation. The gallbladder fundus was then grasped and elevated cephalad. Then, using careful dissection the peritoneum was opened and the structures of the hepatocystic triangle were delineated. Once the critical view of safety was obtained, a cholangiocatheter was fed into the cystic duct and clamped into place using the Urena Sahara clamp. A cholangiogram was then obtained showing a standard length cystic duct flowing into a common bile duct with unobstructed antegrade flow of contrast into the duodenum. There was also retrograde flow through the common hepatic duct into the right and left hepatic ducts. The cystic duct was triply clipped and sharply divided. The same process was used for the cystic artery. The gallbladder was then removed from the gallbladder fossa with the use of electrocautery. The gallbladder fossa was reinspected and found to be hemostatic. The gallbladder was placed in an Endo Catch bag and removed from the peritoneum. Morison's pouch was irrigated and the effluent was suctioned free of the peritoneum. Hemostasis was again confirmed. Pneumoperitoneum was evacuated and the fascia of the supraumbilical 12 mm port site was closed with #1Vicryl in a [id number] fashion. A total of 20 mL of 0.75% bupivacaine local anesthetic was injected at the port sites for postoperative pain control. The skin of each port site was then closed in subcuticular fashion using 4-0 Monocryl. Steri-Strips and bandages were applied as dressings. Patient tolerated the procedure well without any apparent complications. On emergence from their anesthetic the patient was taken to PACU for ongoing recovery. Complications None Admit VTE Documentation VTE Present on Admission: Yes Procedures Digestive 40xxx-49xxx: [id number] Laparo cholecystectomy/graph
--- NOTE | 2021-08-27 13:57 | EX.PCM.DISCH ---
Discharge Instructions Diet Discharge Diet: No restrictions Activity Discharge Activity: May Not Drive (No driving while using narcotic pain medication) and May Shower (Postoperative day 1) May shower in (days): 1 Ice area for (Minutes): 20 Lifting Restrictions: No lifting greater than 15 pounds for 2 weeks after surgery Dressing / Incision Call your doctor if your incision/area has: Continuous Slow Oozing, Increased Pain/ Swelling, Increased Redness, Foul Smelling Discharge and Swelling at the incision site Call your doctor if you observe: Fever of 101 or Higher Remove Dressing in: 1 day (Please leave Steri-Strips intact until they fall off spontaneously or are taken off at your follow-up visit) Cleanse incision/area with: Soap & Water Follow Up Care Please Follow Up With: Jose Alfredo Baum MD When: 7-10days postop Test Results: Test results from this visit will be discussed in further detail at your follow-up appointment, if applicable. Discharge Plan Admission Primary Reason for Your Visit: Symptomatic cholelithiasis Attending Provider: Jose Alfredo Baum Primary Care Provider: Care Physician,No Primary Instructions Patient Instructions: After Gallbladder Surgery Discharge Orders/Prescriptions Prescriptions: New oxycodone 5 mg capsule 5 mg PO Q6H PRN (Reason: pain) 5 Days Qty: 14 RF: 0 Other Ambulatory Orders: 12 Lead EKG (Routine) Timeframe: [id number] Location: None Selected Ordered By: Dr. Gary Cleveland Referrals / Follow Up: Care Physician,No Primary [Primary Care Provider] - Disposition Disposition (needs filled in before D/C Order can be placed): Home, Self Care
[2021-08-27] MEDS: Lactated Ringers 1,000 ML 30 ML IV (14:30)
== END 2021-08-27 16:19 | disposition home or self-care (01) ==
LOC: SDC 10:00 → AC 10:01
PROVIDERS: Anesthesiology; Referring Provider Surgery; Visit Provider Surgery
PROC: (CPT 47610; principal; 2021-08-27 11:10)
DX: K80.10 Calculus of gallbladder with chronic cholecystitis without obstruction (principal); K82.8 Other specified diseases of gallbladder; Z20.822 Contact with and (suspected) exposure to COVID-19
CPT/HCPCS: 47563; 74300; 76000; 81025; 87426; 88304; 93005; C9803; J7120; J2405